=== PATIENT | male | born 1995 | race Caucasian/White ===

== ENCOUNTER 2017-02-18 21:50 | Emergency (ER) | payer OTHER ==
[~2017-02-18] VITALS: Ht 165.1 cm; Wt 61.4 kg
[~2017-02-18 21:50] MED LIST: CEPH500C3 PO
[2017-02-18 21:51] VITALS: BP 128/63; PULSE 98; RESP 16; TEMP 97.6; O2SAT 99
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
[2017-02-18] MEDS ORDERED: IBUPROFEN 600 MG TAB PO ONE (22:15)
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
[2017-02-18] MEDS ORDERED: IBUP-232 PO (22:38)
[2017-02-18] MEDS ORDERED: PERC5TAB12 PO (22:38)
== END 2017-02-18 22:58 | disposition home or self-care (01) ==
LOC: PHED 21:50
DX: S62.326A Displaced fracture of shaft of fifth metacarpal bone, right hand, initial encounter for closed fracture (principal); Y93.72 Activity, wrestling
CPT/HCPCS: 29125; 73130

== ENCOUNTER 2017-08-16 20:30 | Emergency (ER) | payer OTHER ==
[~2017-08-16] VITALS: Ht 167.6 cm; Wt 60.0 kg
[~2017-08-16 20:30] MED LIST changes: -CEPH500C3 PO; +IBUP-232 PO; +PERC5TAB12 PO
[2017-08-16 20:51] VITALS: BP 121/95; PULSE 95; RESP 18; TEMP 98.3; O2SAT 96
[2017-08-16] MEDS ORDERED: metroNIDAZOLE 500 MG TAB PO ONE (21:00)
[2017-08-16] MEDS ORDERED: cefTRIAXone 250 MG VIAL IM ONE (21:00)
[2017-08-16] MEDS ORDERED: AZITHROMYCIN 250 MG TAB PO ONE (21:00)
[2017-08-16] MEDS ORDERED: LIDOCAINE HCL 1% 50 ML VIAL XX ONE (21:00)
--- NOTE | 2017-08-16 21:01 | PD ---
HPI . STD exposure Chief Complaint: Complaint Time Seen by Provider: 20:54 Travel History International Travel<30 days: No Contact w/Intl Traveler<30days: No Traveled to known affect area: No History of Present Illness HPI This patient presents stating that his girlfriend was recently diagnosed with chlamydia. He has no symptoms. He comes in to us requesting a "STD panel." PFSH Past Medical History Medical History: Denies Significant Hx Diminished Hearing: No Immunizations Current: Yes Tetanus Vaccination: Unknown Influenza Vaccination: No ?: Not Past Surgical History Surgical History: No Previous Surgery Social History Alcohol Use: Yes (weekends) Tobacco Use: Yes (1 pk every 2 days) Substance Use: Yes (marijuana) Allergies-Medications (Allergen,Severity, Reaction): Coded Allergies: No Known Allergies (Verified Adverse Reaction, Unknown, 08/16/17) Reported Meds & Prescriptions Reported Meds & Active Scripts Active No Active Prescriptions or Reported Medications Review of Systems Except as stated in HPI: all other systems reviewed are Neg Physical Exam Narrative GENERAL: Awake and alert and in no acute distress. SKIN: Warm and dry. Normal color and turgor. HEAD: Normocephalic/atraumatic. EYES: Pupils are equal. Extraocular movements are intact. NECK: Normal range of motion. Supple. CARDIOVASCULAR: Regular rate and rhythm. RESPIRATORY: Nonlabored respirations. Normal sats. MUSCULOSKELETAL: Atraumatic. Normal muscle tone. NEUROLOGICAL: A and O 3. Nonfocal. PSYCHIATRIC: Appropriate mood and affect. Data Data Last Documented VS Vital Signs Date Time Temp Pulse Resp B/P (MAP) Pulse Ox O2 Delivery O2 Flow Rate FiO2 08/16/17 20:51 98.3 95 18 121/95 (104) 96 Orders Orders Ceftriaxone Inj (Rocephin Inj) (08/16/17 21:00) Lidocaine 1% Inj (50 Ml) (Xylocaine 1% I (08/16/17 21:00) Azithromycin (Zithromax) (08/16/17 21:00) Metronidazole (Flagyl) (08/16/17 21:00) MDM Medical Decision Making Medical Screen Exam Complete: Yes Emergency Medical Condition: Yes Differential Diagnosis Differential diagnosis of STD exposure includes but is not limited to no disease , chlamydia, gonorrhea, Trichomonas Narrative Course This patient presents stating that he was exposed to chlamydia. He does not have any symptoms. Unfortunately, we do not have anyone here who can take care of an EMC no. He will be treated empirically for chlamydia, GC and trichomonas. Diagnosis Primary Impression: STD exposure Patient Instructions: General Instructions Departure Forms: Tests/Procedures Additional Instructions: Follow up at the [facility] for any further issues. Scripts No Active Prescriptions or Reported Meds Disposition: 01 DISCHARGE HOME Condition: Stable Stephanie Moreau MD Aug 16, 2017 21:01
[2017-08-16] MEDS ORDERED: LIDOCAINE HCL 1% PF 30 ML VIAL ONE (21:10)
== END 2017-08-16 22:06 | disposition home or self-care (01) ==
LOC: PHEFT 20:30
DX: Z20.2 Contact with and (suspected) exposure to infections with a predominantly sexual mode of transmission (principal); Z72.0 Tobacco use; F12.90 Cannabis use, unspecified, uncomplicated
CPT/HCPCS: 96372; 99283; J0696